=== PATIENT | female | born 1975 | race Caucasian/White ===

== ENCOUNTER → 2016-11-23 | Outpatient (CLI) | payer OTHER ==
--- NOTE | 2016-11-23 13:32 | US ---
EXAM DESCRIPTION: Gall Bladder CLINICAL HISTORY: Cholecystitis right upper quadrant pain COMPARISON: None. TECHNIQUE: Routine sonographic images of the right upper quadrant of the abdomen were acquired and submitted for review. FINDINGS: Liver: Normal in size and echogenicity. Portal vein demonstrates normal directional flow. Bile ducts- Intrahepatic and extrahepatic bile ducts not dilated with common bile duct measuring 4 mm. Gallbladder: Normal without sludge, calculi, or polyps. The gallbladder wall is normal. Pancreas: Unremarkable. IMPRESSION: Normal right upper quadrant abdominal ultrasound. Electronically signed by: Daniel Casas MD 11/23/2016 1:31 PM CDT
== END | disposition home or self-care (01) ==
LOC: US 12:18
PROVIDERS: ATTEND Nurse Practitioner Acute Care
DX: K81.0 Acute cholecystitis (principal)